=== PATIENT | female | born 1945 | race Caucasian/White ===

== ENCOUNTER 2024-05-08 13:15 | Outpatient (CLI) | payer MEDICARE, SELFPAY ==
--- OUTSIDE RECORDS SUMMARY | 2024-05-08 13:19 | XMS_ITS | Clinical Summary ---
Author Organization [facility] Address [place], [place] [address] Care Team Providers Care Brush Stainer Name Role Phone Ginny Watson MD Primary Care Provider Milo infante Social History Tobacco Use Types Packs/Day Years Used Date Smoking Tobacco: Never Assessed Sex and Gender Information Value Date Recorded Sex Assigned at Not on file Gender Identity Not on file Sexual Orientation Not on file Plan of Treatment Health Maintenance Due Date Last Done Comments Tdap 1957 Depression screening for age 12+ 1958 BMI (ht and wt on same day) for age 18+ 1964 Hepatitis C screening for age 18-79 1964 Tetanus booster 1966 Zoster (shingles) series for age 50+ (1 of 2) 03/16/19 96 Pneumococcal series for age 65+ (1 of 1 - PCV) 011 COVID-19 vaccine series ( - 2022-24 season) 3 Influenza for age 65+ 07/28/2024 DEXA/DXA scan for age 65+ Completed 03/07/2011 Procedures Procedure Name Priority Date/Time Associated Diagnosis Comments SCAN-BONE DENSITOMETRY DEXA 03/07/2011 12:00 AM CDT from Last 3 Months or Most Recently Relevant to Health Maintenance Results * SCAN-BONE DENSITOMETRY DEXA (03/07/2011 12:00 AM CDT) Anatomical Region Laterality Modality Other Narrative Procedure Note Scanner - 03/07/2011 12:00 AM CDT Scanner OTHER from Last 3 Months or Most Recently Relevant to Health Maintenance Care Teams Brush Stainer Relationship Specialty Start Date End Date Ginny Watson MD PCP - General Family Practice 07/27/12
== END 2024-05-08 13:16 | disposition home or self-care (01) ==
PROVIDERS: PCP Family Medicine; Visit Provider Family Medicine
DX: I10 Essential (primary) hypertension (principal); D64.9 Anemia, unspecified
CPT/HCPCS: 80053; 84443

== ENCOUNTER 2024-05-08 14:11 | Inpatient (IN) | payer MEDICARE, SELFPAY ==
[2024-05-08] VITALS (44 sets, daily range): BP systolic 162–206; BP diastolic 64–142; PULSE 77–102; RESP 16–20; TEMP 35.9–36.9; O2SAT 90–100; BMI 31.7; BMI 32.0
--- NOTE | 2024-05-08 14:40 | ED_ITS ---
HPI - General Adult General Date Seen: 05/08/24 Chief complaint: Shortness of Breath/Dyspnea Stated complaint: PCP sent over-Hemog low Time Seen by Provider: 05/08/24 14:28 History of Present Illness HPI narrative: 79-year-old female who was referred to the ER today from the clinic for evaluation of low hemoglobin. She has apparently been having troubles with fatigue ever since she had COVID shots 2 years ago. She does not normally go to the doctor. In clinic today she was checked and her hemoglobin was 5.5. No recent black or bloody stools. No pain. Per clinic note from today, Patient is a 79 year-old female , last seen at any of our locations 04/20/[address] Urena. I last saw her in 2018. She has a following concerns. 1. Reduced stamina, low energy, lightheadedness. Noticed for 3 years but more noticeable in the last 2 months. Some days she is able to walk 45 minutes and other days she struggles to walk even 200 ft without stopping to rest. No associated chest pain. She does endorse dyspnea on exertion. 2. Left ear popping. 3. Ear humming. Lab 05/08/2024 WBC 7.9, hemoglobin 5.5, hematocrit 21.5, platelet count 382 TSH-pending CMP-pending History from the patient is that she recalls getting a COVID shot about 2 years ago. After that she began having some gurgling in GI upset. She blames those symptoms on her COVID shot because she had never had any of those illnesses before. It sounds like her doctor has recommended previous colonoscopies and other testing but she has always declined. She says she is generally healthy. She takes calcium but no other routine medications. She has not seen her doctor in a couple of years. She has had some trouble with some fatigue for the past couple of years of her sensor COVID shot but notes that in particular for the past 2 or 3 months she has been much more fatigued. She normally would do a lot of work around her yard and garden but she has been so symptomatic she has been unable to do it for the past few months. She has a mailbox that is 200-300 ft away from her house. She notes that couple of months ago she would walk out to the mailbox. Very short of breath that her heart would be racing and she be breathing rapidly so she would after rest minute. She has gotten to the point now where she cannot even go out to her mailbox. When she tries to walk around how she gets so short of breath she has to sit down and rest. She is not really having chest pain. Just that she feels very fatigued and dizzy and short of breath with exertion. No palpitations. No swelling in her legs. No headaches. No fever. Bowel movements have been normal. She has a distant history of ulcerative proctitis but has not had any pain like that in many years. No black or bloody stools. She does take aspirin occasionally (since for instance as needed for headache) but probably no more than once every few weeks. No NSAIDs. No other anticoagulants. Related Data Home Medications ?Medication ?Instructions ?Recorded ?Confirmed calcium 650 mg-vitamin D3 12.5 1 tab PO BID 05/08/24 05/08/24 mcg-vitamin K 40 mcg chewable tablet (Viactiv) Allergies Allergy/AdvReac Type Severity Reaction Status Date / Time citric acid Allergy Intermediate Itching Verified 05/08/24 18:00 fish derived Allergy Intermediate Hives Verified 05/08/24 18:00 magnesium citrate Allergy Intermediate Itching Verified 05/08/24 18:00 and Rash shellfish derived Allergy Mild Rash Verified 05/08/24 18:00 CT contrast Allergy Mild voice Uncoded 05/08/24 18:00 [facility] Medical History (Updated 05/08/24 @ 18:52 by Robert Machado MD) Hypertension ?I10 - Essential (primary) hypertension (ICD-10) Microcytic anemia ?D50.9 - Iron deficiency anemia, unspecified (ICD-10) Surgical History (Updated 05/08/24 @ 15:27 by Ashly Burno) History of anterior colporrhaphy (08/08/17) ?Z98.890 - Other specified postprocedural states (ICD-10) History of total vaginal hysterectomy (12/22/04) ?Z90.710 - Acquired absence of both cervix and uterus (ICD-10) History of tonsillectomy and adenoidectomy ?Z90.89 - Acquired absence of other organs (ICD-10) History of dilation and curettage (10/13/04) ?Z98.890 - Other specified postprocedural states (ICD-10) Family History (Updated 05/08/24 @ 15:34 by Ashly Damion) Father Esophageal cancer Mother COPD (chronic obstructive pulmonary disease) Social History (Updated 05/08/24 @ 18:48 by Robert Machado MD) Narrative: She lives with her and son [facility]. Her son is healthcare power of privacy attorney. Code status is full. She does not smoke. She does not drink alcohol. What is your current living situation?: I presently have a place to live Problems where you live: no known problems Problems where you live details: N/A In the past 12 months, utilities in danger of being shut off: no In past 12 months, lack of transportation kept you from medical appts, meetings, work, or getting things needed for daily living: no In the past 12 mos, have been you worried that your food would run out before you had money to buy more?: never true In the past 12 mos, the food you bought just didn't last and you didn't have money to buy more?: never true Smoking Status: Never smoker Do you use any of these nicotine containing products: None Second hand tobacco smoke exposure: No How often do you have a drink containing alcohol: never AUDIT-C Alcohol total score: 0 Non-prescribed substance use: denies use How often does anyone, including family, friends and others, physically hurt you : never How often does anyone, including family, friends and others, insult or talk down to you: never How often does anyone, including family, friends and others, threaten you with harm: never How often does anyone, including family, friends and others, scream or curse at you: never Little interest or pleasure in doing things: not at all Feeling down, depressed, or hopeless: not at all service: No Exam Narrative: Exam Narrative: Constitutional: Appears well-developed and well-nourished. Alert. Conversant. Non toxic. HENT: Head: Atraumatic. Nose: Nose normal. Mouth/Throat: Oral mucosa is clear and moist. no trismus. Pharynx normal. Tonsils symmetric. No tonsillar enlargement, erythema, or exudate. Eyes: Conjunctivae normal. EOM normal. Pupils equal, round, and reactive to light. No scleral icterus. Neck: Normal range of motion. Neck supple. No tracheal deviation present. No JVD Cardiovascular: Normal rate, regular rhythm. No gallop. No friction rub. No murmur heard. Symmetric radial and PT artery pulses Pulmonary/Chest: Effort normal. No stridor. No respiratory distress. No wheezes. No rales. No rhonchi . No tenderness. Abdominal: Soft. Bowel sounds normal. No distension. No mass. Right lower quadrant right mid abdominal tenderness. No rebound. No guarding. Musculoskeletal: RUE: Normal range of motion. No tenderness. No deformity LUE: Normal range of motion. No tenderness. No deformity RLE: Normal range of motion. No edema. No tenderness. No deformity LLE: Normal range of motion. No edema. No tenderness. No deformity Lymph: No cervical adenopathy. Neurological: Alert and oriented to person, place, and time. Normal strength. CN II-VII intact. No sensory deficit. GCS eye subscore is 4. GCS verbal subscore is 5. GCS motor subscore is 6. Normal coordination Skin: Skin is pale, but warm and dry. No rash noted. No pallor. Normal capillary refill. Psychiatric: Normal mood. Normal affect. Const: Vital Signs, click to edit/add: Vital Signs - 24 hr 05/08/24 14:32 05/08/24 14:32 05/08/24 14:34 Temperature 96.6 F L Pulse Rate 85 77 Pulse Rate [Pulse Oximeter] 88 Respiratory Rate 20 Blood Pressure 206/81 H Blood Pressure [Ri ght Upper Arm] 206/81 H Pulse Oximetry 95 99 [facility] 05/08/24 14:40 05/08/24 14:41 05/08/24 14:45 Temperature Pulse Rate 82 91 80 Pulse Rate [Pulse Oximeter] Respiratory Rate 16 Blood Pressure 196/84 H Blood Pressure [Ri ght Upper Arm] Pulse Oximetry 100 100 98 Oxygen Delivery Ar thod 05/08/24 15:00 05/08/24 15:02 05/08/24 15:03 Temperature Pulse Rate 85 80 86 Pulse Rate [Pulse Oximeter] Respiratory Rate Blood Pressure 193/142 H Blood Pressure [Ri ght Upper Arm] Pulse Oximetry 99 95 98 Oxygen Delivery Ar thod 05/08/24 15:15 05/08/24 15:28 05/08/24 15:30 Temperature Pulse Rate 78 77 79 Pulse Rate [Pulse Oximeter] Respiratory Rate Blood Pressure 191/81 H Blood Pressure [Ri ght Upper Arm] Pulse Oximetry 93 98 98 Oxygen Delivery Me thod 05/08/24 16:00 05/08/24 16:02 05/08/24 16:15 Temperature Pulse Rate 85 85 102 H Pulse Rate [Pulse Oximeter] Respiratory Rate Blood Pressure 183/73 H Blood Pressure [Ri ght Upper Arm] Pulse Oximetry 98 96 99 Oxygen Delivery Me thod 05/08/24 16:23 05/08/24 16:30 05/08/24 16:33 Temperature Pulse Rate 88 90 85 Pulse Rate [Pulse Oximeter] Respiratory Rate Blood Pressure 197/74 H 203/82 H Blood Pressure [Ri ght Upper Arm] Pulse Oximetry 98 97 98 Oxygen Delivery Me thod 05/08/24 16:34 05/08/24 16:45 05/08/24 16:47 Temperature Pulse Rate 84 88 Pulse Rate [Pulse Oximeter] Respiratory Rate 20 Blood Pressure Blood Pressure [Ri ght Upper Arm] Pulse Oximetry 98 99 Oxygen Delivery Ar thod 05/08/24 16:48 05/08/24 17:00 05/08/24 17:02 Temperature Pulse Rate 80 93 88 Pulse Rate [Pulse Oximeter] Respiratory Rate Blood Pressure 197/82 H 199/76 H Blood Pressure [Ri ght Upper Arm] Pulse Oximetry 97 91 90 Oxygen Delivery Ar thod 05/08/24 17:11 05/08/24 17:15 05/08/24 17:16 Temperature 98.1 F Pulse Rate 83 82 81 Pulse Rate [Pulse Oximeter] Respiratory Rate 20 Blood Pressure 201/81 H 201/81 H Blood Pressure [Ri ght Upper Arm] Pulse Oximetry 97 96 96 Oxygen Delivery Me thod 05/08/24 17:30 05/08/24 17:35 05/08/24 17:36 Temperature 98.0 F Pulse Rate 83 80 80 Pulse Rate [Pulse Oximeter] Respiratory Rate 20 20 Blood Pressure 184/75 H 184/75 H Blood Pressure [Ri ght Upper Arm] Pulse Oximetry 97 97 95 Oxygen Delivery Me thod 05/08/24 17:37 05/08/24 17:45 05/08/24 18:00 Temperature Pulse Rate 80 81 82 Pulse Rate [Pulse Oximeter] Respiratory Rate Blood Pressure Blood Pressure [Ri ght Upper Arm] Pulse Oximetry 96 96 96 Oxygen Delivery Me thod 05/08/24 18:02 05/08/24 18:15 05/08/24 18:20 Temperature 97.8 F Pulse Rate 80 85 84 Pulse Rate [Pulse Oximeter] Respiratory Rate 20 Blood Pressure 192/84 H 206/93 H Blood Pressure [Ri ght Upper Arm] Pulse Oximetry 96 96 97 Oxygen Delivery Me thod 05/08/24 18:21 Temperature Pulse Rate 88 Pulse Rate [Pulse Oximeter] Respiratory Rate 20 Blood Pressure 206/93 H Blood Pressure [Ri ght Upper Arm] Pulse Oximetry 95 Oxygen Delivery Me thod Course Vital Signs Vital signs: Initial Vital Signs Temperature 96.6 F L 05/08/24 14:32 Temperature Source Temporal Artery Scan 05/08/24 14:32 Pulse Rate 85 05/08/24 14:32 Pulse Rhythm Regular 05/08/24 14:32 Pulse Strength 3+ Normal 05/08/24 14:32 Respiratory Rate 20 05/08/24 14:32 Blood Pressure 206/81 H 05/08/24 14:32 Blood Pressure Mean 122 H 05/08/24 14:32 Blood Pressure Position Sitting 05/08/24 14:32 Pulse Oximetry 95 05/08/24 14:32 Oxygen Delivery Method Room Air 05/08/24 14:32 Vital Signs Temperature 96.6 F L 05/08/24 14:32 Pulse Rate 85 05/08/24 14:32 Respiratory Rate 20 05/08/24 14:32 Blood Pressure 206/81 H 05/08/24 14:32 Pulse Oximetry 95 05/08/24 14:32 Oxygen Delivery Method Room Air 05/08/24 14:32 Temperature 97.8 F 05/08/24 19:38 Pulse Rate 82 05/08/24 19:38 Respiratory Rate 20 05/08/24 19:38 Blood Pressure 185/80 H 05/08/24 19:38 Pulse Oximetry 95 05/08/24 19:38 Oxygen Delivery Method Room Air 05/08/24 19:30 Medications Administered Medications: Discontinued Medications Generic Name Dose Route Start Last Admin Trade Name Freq PRN Reason Stop Dose Admin Diphenhydramine HCl 25 mg 05/08/24 16:49 05/08/24 16:30 Diphenhydramine 50 Mg/Ml Inj IVP 05/08/24 16:50 25 mg ONCE ONE Administration Famotidine 20 mg 05/08/24 16:49 05/08/24 17:24 Famotidine 10 Mg/Ml Inj IVP 05/08/24 16:50 Not Given ONCE ONE Methylprednisolone Sodium Succinate 125 mg 05/08/24 16:49 05/08/24 16:35 Methylprednisolone Sod Succ 62.5 Mg/Ml (125) IVP 05/08/24 16:50 125 mg ONCE ONE Administration Medical Decision Making [facility] Narrative Medical decision making narrative: 79-year-old female referred from the outpatient clinic today with anemia. She has had symptoms of anemia, possibly dating back to couple of years but it sounds pretty convincing that she has been having significant anemia for the past couple of months. She has not seen a doctor a few years but finally came back to the clinic today because her symptoms had not been improving over time. She was found to have a hemoglobin of 5.5. Suspect this is probably a chronic anemia because the patient is hemodynamically stable (actually, hypertensive). The she has clear symptoms attributable to anemia and with hemoglobin of 5.5 I do think transfusion is indicated. Discussed risks and benefits of transfusion with the patient her son. They give verbal and written consent for transfusion. She is started on her 1st of 2 units of packed red cells while here in the ER. Differential for causes of anemia is broad. There is no clear sign of hemolysis on her CBC. She will need workup for iron deficiency or other vitamin deficiencies causing poor synthetic function from her bone marrow. Also consider possible GI bleeding. She denies any recent black or bloody stools. She does have a distant history of ulcerative proctitis, but has not had any symptoms to that for years. CT scan today shows no sign of any acute inflammatory change in the abdomen or pelvis. Her stool is heme-positive. Consider possible subacute to chronic upper GI bleed or lower GI bleed. Patient will be admitted for observation overnight to watch her hemoglobin as she received her transfusion and can have further workup for possible upper GI bleed while in hospital. She will likely need endoscopy and possibly outpatient colonoscopy as well. Discussed with our hospitalist, Dr. Machado , who graciously agrees to admit. Incidentally while here in the ER the patient had a brief episode of hoarseness in her voice after receiving IV contrast. Treated with IV steroids and antihistamines with completely resolution. No other clear signs of allergy such as hives or any visible airway or facial swelling. Nonetheless, we will label her chart as a allergy to CT contrast. At this point she is not requiring any further treatment or epinephrine. Epinephrine room was somewhat contraindicated because of pre-existing hypertension however she does have any recurrent symptoms of allergic reaction, epinephrine would be indicated. Lab Data Labs: Lab Results 05/08/24 05/08/24 05/08/24 Range/Units 14:43 15:09 16:55 WBC 7.58 (4.50-11.00) K/uL RBC 3.98 L (4.00-5.20) m/uL Hgb 5.5 L* (12.0-16.0) gm/dL Hct 21.6 L (33.0-51.0) % MCV 54 L (80-100) fL MCH 14 L (26-34) pg MCHC 26 L (32-36) gm/dL RDW Coeff of Halley 22.0 H (11.5-15.5) % Plt Count 383 (140-440) K/uL Neut % (Auto) 61.3 (42.0-72.0) % Lymph % (Auto) 25.2 (20-44) % [place] % (Auto) 10.8 (0.0-11.0) % Eos % (Auto) 1.5 (0.0-7.0) % Baso % (Auto) 1.1 (0.0-3.0) % Neut # (Auto) 4.65 (1.7-7.0) K/uL Lymph # (Auto) 1.91 (0.90-2.90) K/uL [place] # (Auto) 0.80 (0.00-0.90) K/UL Eos # (Auto) 0.11 (0.00-0.50) K/uL Baso # (Auto) 0.08 (0.00-0.30) K/uL Abs Immat Gran (auto) 0.01 (0.00-0.30) K/uL Imm/Tot Granulo (auto) 0.1 % Diff Slide Review Acceptable Review (Acceptable) Stool Occult Blood Positive A (Negative) POC Troponin I 0.01 (0.01-0.04) ng/ml Blood Type AB Positive Antibody Screen NEGATIVE Crossmatch (AHG) See Detail Imaging Data CT scan - abdomen: Attestation: I have reviewed the pertinent imaging results. My impression: IMPRESSION: No acute intraabdominal process identified. ECG Data Attestation: I personally reviewed and interpreted this ECG as follows: Interpretation: Normal sinus rhythm Rate: 74 DE: 158 QRS axis: Normal axis. No pathologic Q-waves. ST segment/T wave: No ST segment elevation or depression. QTc: 417 Discharge Plan Discharge Clinical Impression: Anemia, Heme positive stool
[2024-05-08 14:56] LABS: Basophils Absolute Auto 0.08 K/uL (0.00-0.30); Basophils Percent Auto 1.1 % (0.0-3.0); Eosinophils Absolute Auto 0.11 K/uL (0.00-0.50); Eosinophils Percent Auto 1.5 % (0.0-7.0); Hematocrit* 21.6 % (33.0-51.0); Immature Granulocytes Abs Auto 0.01 K/uL (0.00-0.30); Immature Granulocytes Pct Auto 0.1 %; Lymphocytes Absolute Auto 1.91 K/uL (0.90-2.90); Lymphocytes Percent Auto 25.2 % (20-44); Mean Corpuscular HGB Conc 26 gm/dL (32-36); Mean Corpuscular Hemoglobin 14 pg (26-34); Mean Corpuscular Volume 54 fL (80-100); Monocytes Percent Auto 10.8 % (0.0-11.0); Neutrophils Absolute Auto 4.65 K/uL (1.7-7.0); Neutrophils Percent Auto 61.3 % (42.0-72.0); Platelet Count* 383 K/uL (140-440); Red Blood Count* 3.98 m/uL (4.00-5.20); White Blood Count* 7.58 K/uL (4.50-11.00)
[2024-05-08 15:03] LABS: Hemoglobin* 5.5 gm/dL (12.0-16.0); Slide Review Reflex Yes
--- NOTE | 2024-05-08 15:03 | ED.NURSE ---
Critical hgb of 5.5, aware
--- NOTE | 2024-05-08 15:06 | CRLHL7_ITS ---
For Patients: As a result of the Century Cures Act, medical imaging exams and procedure reports are released immediately into your electronic medical record. You may view this report before your referring provider. If you have questions, please contact your health care provider. INDICATION: anemia, weakness, RLQ tenderness. TECHNIQUE: CT abdomen and pelvis acquired with 82 cc Isovue 370 IV contrast. COMPARISON: None. FINDINGS: Lower chest: Mild cardiomegaly. Liver: Unremarkable. Normal in size and attenuation. No suspicious masses. Gallbladder and bile ducts: Unremarkable. No stones or inflammation. No biliary dilatation. Pancreas: Unremarkable. No mass or inflammation. Spleen: Unremarkable. Normal in size. No masses. Adrenal glands: Unremarkable. No nodules. Kidneys: Unremarkable. No suspicious masses, stones, or hydronephrosis. GI tract: Small hiatal hernia. Severe sigmoid diverticulosis. Normal appendix. Vasculature: Abdominal aorta is normal in caliber. Mesenteric arteries are patent. Lymph nodes: No lymphadenopathy. Peritoneum/Abdominal Wall: Unremarkable. No sign of mass or infiltration. No free air or significant free fluid. Pelvis: Unremarkable. Bones: Unremarkable for age. IMPRESSION: No acute intraabdominal process identified. Please note that all CT scans at this facility use dose modulation, iterative reconstruction, and/or weight-based dosing when appropriate to reduce radiation dose to as low as reasonably achievable. Dictated by Belgica Wooten MD @ 05/08/2024 6:33:00 PM (Electronically Signed)
[2024-05-08 15:10] LABS: Troponin, Point-of-Care* 0.01 ng/ml (0.01-0.04)
--- OUTSIDE RECORDS SUMMARY | 2024-05-08 15:23 | XMS_ITS | Clinical Summary ---
Author Organization [facility] Address [place], [place] [address] Care Team Providers Care Hand Nailer Name Role Phone Ginny Watson MD Primary [...] Recently Relevant to Health Maintenance Care Teams Hand Nailer Relationship Specialty Start Date End Date Ginny Watson MD PCP - General Family Practice 07/27/12
[2024-05-08 16:16] LABS: Slide Review Acceptable Review (Acceptable)
[2024-05-08] MEDS: diphenhydrAMINE 50 MG/ML inj 25 MG IVP (16:30)
[2024-05-08] MEDS: METHYLPREDNISOLONE SOD SUCC 62.5 MG/ML (125) 125 MG IVP (16:35)
[2024-05-08 17:56] LABS: Fecal Occult Blood* Positive (Negative)
--- NOTE | 2024-05-08 18:41 | PM.IMHP1 ---
Hospitalist- H&P: HPI History of Present Illness Date Seen: 05/08/24 Chief complaint: PCP sent over-Hemog low Narrative: Kiersten Brown is a 79 year old female admitted to the hospital with several weeks or months of worsening fatigue and lightheadedness and hemoglobin in clinic today of 5.5. She reports poor exercise tolerance and reports feeling like she has 'run a marathon' with even mild routine household tasks. She has not been syncopal. She does not have chest pain with activity. She had heme-positive stool in the emergency department Patient reports she has generally been healthy but has noted worsening fatigue and lightheadedness especially over the last few weeks. She indicates this may have gone back a couple years to when she got the COVID vaccine as well. At that time she did have gastrointestinal symptoms and some wheezing for a few months and that resolved and she seemed to get better but now is getting worse again. She is not aware of any bleeding. She reports her stools are normally light brown but today in the emergency department she had a dark stool. She has not seen blood in her stool. She has no vomiting or abdominal pain. She has not any fever. 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 This diagnosis was made in the . She has not been taking any treatment for this. She had a colonoscopy done 03/17/[address] Samayoa. He found colitis in the area of the colon 10-15 cm above the rectal verge. A biopsy of that area showed focally minimally active chronic colitis. She is not taking any anticoagulation. She occasionally but quite infrequently takes an aspirin. Her only medication is a multivitamin. She does not take [id number] pain medicines including NSAIDs/ibuprofen/naproxen. Review of Systems Narrative: She tells me that she has had high blood pressure diagnosis in the past but is reluctant to take blood pressure medication. [facility] Medical History (Updated 05/08/24 @ 18:52 by Robert Machado MD) Hypertension ?I10 - Essential (primary) hypertension (ICD-10) Microcytic anemia ?D50.9 - Iron deficiency anemia, unspecified (ICD-10) Surgical History (Updated 05/08/24 @ 15:27 by Ashly Bruno) History of anterior colporrhaphy (08/08/17) ?Z98.890 - Other specified postprocedural states (ICD-10) History of total vaginal hysterectomy (12/22/04) ?Z90.710 - Acquired absence of both cervix and uterus (ICD-10) History of tonsillectomy and adenoidectomy ?Z90.89 - Acquired absence of other organs (ICD-10) History of dilation and curettage (10/13/04) ?Z98.890 - Other specified postprocedural states (ICD-10) Family History (Updated 05/08/24 @ 15:34 by Ashly Bruno) Father Esophageal cancer Mother COPD (chronic obstructive pulmonary disease) Social History (Updated 05/08/24 @ 18:48 by Robert Machado MD) Narrative: She lives with her and son [facility]. Her son is healthcare power of title attorney. Code status is full. She does not smoke. She does not drink alcohol. What is your current living situation?: I presently have a place to live Problems where you live: no known problems In the past 12 months, utilities in danger of being shut off: no In past 12 months, lack of transportation kept you from medical appts, meetings, work, or getting things needed for daily living: no In the past 12 mos, have been you worried that your food would run out before you had money to buy more?: never true In the past 12 mos, the food you bought just didn't last and you didn't have money to buy more?: never true Smoking Status: Never smoker Do you use any of these nicotine containing products: None Second hand tobacco smoke exposure: No How often do you have a drink containing alcohol: never AUDIT-C Alcohol total score: 0 Non-prescribed substance use: denies use How often does anyone, including family, friends and others, physically hurt you: never How often does anyone, including family, friends and others, insult or talk down to you: rarely How often does anyone, including family, friends and others, threaten you with harm: never How often does anyone, including family, friends and others, scream or curse at you: never Little interest or pleasure in doing things: not at all Feeling down, depressed, or hopeless: not at all service: No Meds Home Medications and Allergies Home Medications ?Medication ?Instructions ?Recorded ?Confirmed ?Type calcium 650 mg-vitamin D3 12.5 1 tab PO BID 05/08/24 05/08/24 History mcg-vitamin K 40 mcg chewable tablet (Viactiv) Allergies Allergy/AdvReac Type Severity Reaction Status Date / Time citric acid Allergy Intermediate Itching Verified 05/08/24 18:00 fish derived Allergy Intermediate Hives Verified 05/08/24 18:00 magnesium citrate Allergy Intermediate Itching Verified 05/08/24 18:00 and Rash shellfish derived Allergy Mild Rash Verified 05/08/24 18:00 CT contrast Allergy Mild voice Uncoded 05/08/24 18:00 Exam Narrative: Exam Narrative: She is alert and appears in no distress. She gives her own history. Speech is normal. Oropharynx is normal. Neck is supple without mass or adenopathy. Respirations are clear to auscultation. Cardiovascular: S1, S2, regular rate and rhythm. No murmur gallop or rub. Abdomen: Bowel sounds active. Abdomen is soft without tenderness or mass. Extremities without edema. Good peripheral pulses Const: Vital Signs, click to edit/add: Vital Signs - 24 hr 05/08/24 14:32 05/08/24 14:32 05/08/24 14:34 Temperature 96.6 F L Pulse Rate 85 77 Pulse Rate [Pulse Oximeter] 88 Respiratory Rate 20 Blood Pressure 206/81 H Blood Pressure [Ri ght Upper Arm] 206/81 H Pulse Oximetry 95 99 100 Oxygen Delivery Me thod Room Air 05/08/24 14:40 05/08/24 14:41 05/08/24 14:45 Temperature Pulse Rate 82 91 80 Pulse Rate [Pulse Oximeter] Respiratory Rate 16 Blood Pressure 196/84 H Blood Pressure [Ri ght Upper Arm] Pulse Oximetry 100 100 98 Oxygen Delivery Me thod 05/08/24 15:00 05/08/24 15:02 05/08/24 15:03 Temperature Pulse Rate 85 80 86 Pulse Rate [Pulse Oximeter] Respiratory Rate Blood Pressure 193/142 H Blood Pressure [Ri ght Upper Arm] Pulse Oximetry 99 95 98 Oxygen Delivery Me thod 05/08/24 15:15 05/08/24 15:28 05/08/24 15:30 Temperature Pulse Rate 78 77 79 Pulse Rate [Pulse Oximeter] Respiratory Rate Blood Pressure 191/81 H Blood Pressure [Ri ght Upper Arm] Pulse Oximetry 93 98 98 Oxygen Delivery Sc thod 05/08/24 16:00 05/08/24 16:02 05/08/24 16:15 Temperature Pulse Rate 85 85 102 H Pulse Rate [Pulse Oximeter] Respiratory Rate Blood Pressure 183/73 H Blood Pressure [Ri ght Upper Arm] Pulse Oximetry 98 96 99 Oxygen Delivery Me thod 05/08/24 16:23 05/08/24 16:30 05/08/24 16:33 Temperature Pulse Rate 88 90 85 Pulse Rate [Pulse Oximeter] Respiratory Rate Blood Pressure 197/74 H 203/82 H Blood Pressure [Ri ght Upper Arm] Pulse Oximetry 98 97 98 Oxygen Delivery Me thod 05/08/24 16:34 05/08/24 16:45 05/08/24 16:47 Temperature Pulse Rate 84 88 Pulse Rate [Pulse Oximeter] Respiratory Rate 20 Blood Pressure Blood Pressure [Ri ght Upper Arm] Pulse Oximetry 98 99 Oxygen Delivery Me thod 05/08/24 16:48 05/08/24 17:00 05/08/24 17:02 Temperature Pulse Rate 80 93 88 Pulse Rate [Pulse Oximeter] Respiratory Rate Blood Pressure 197/82 H 199/76 H Blood Pressure [Ri ght Upper Arm] Pulse Oximetry 97 91 90 Oxygen Delivery Me thod 05/08/24 17:11 05/08/24 17:15 05/08/24 17:16 Temperature 98.1 F Pulse Rate 83 82 81 Pulse Rate [Pulse Oximeter] Respiratory Rate 20 Blood Pressure 201/81 H 201/81 H Blood Pressure [Ri ght Upper Arm] Pulse Oximetry 97 96 96 Oxygen Delivery Me thod 05/08/24 17:30 05/08/24 17:35 05/08/24 17:36 Temperature 98.0 F Pulse Rate 83 80 80 Pulse Rate [Pulse Oximeter] Respiratory Rate 20 20 Blood Pressure 184/75 H 184/75 H Blood Pressure [Ri ght Upper Arm] Pulse Oximetry 97 97 95 Oxygen Delivery Me thod 05/08/24 17:37 05/08/24 17:45 05/08/24 18:00 Temperature Pulse Rate 80 81 82 Pulse Rate [Pulse Oximeter] Respiratory Rate Blood Pressure Blood Pressure [Ri ght Upper Arm] Pulse Oximetry 96 96 96 Oxygen Delivery Me thod 05/08/24 18:02 05/08/24 18:15 05/08/24 18:20 Temperature 97.8 F Pulse Rate 80 85 84 Pulse Rate [Pulse Oximeter] Respiratory Rate 20 Blood Pressure 192/84 H 206/93 H Blood Pressure [Ri ght Upper Arm] Pulse Oximetry 96 96 97 Oxygen Delivery Me thod 05/08/24 18:21 Temperature Pulse Rate 88 Pulse Rate [Pulse Oximeter] Respiratory Rate 20 Blood Pressure 206/93 H Blood Pressure [Ri ght Upper Arm] Pulse Oximetry 95 Oxygen Delivery Me thod Documenting provider has reviewed patient's vital signs: yes Hospitalist - H&P: Result Labs Labs: Short CBC 05/08/24 Range/Units 14:43 WBC 7.58 (4.50-11.00) K/uL Hgb 5.5 L* (12.0-16.0) gm/dL Hct 21.6 L (33.0-51.0) % Plt Count 383 (140-440) K/uL Assessment and Plan Assessment and plan (1) Microcytic anemia: Problem comment: Likely chronic iron deficiency anemia. Suspect due to chronic blood loss from the gastrointestinal tract. Obtain EGD now and outpatient colonoscopy. Check retic count and iron studies. Outpatient iron therapy if indicated. Transfuse 2 units of blood now and recheck hemoglobin. Status: Acute (2) Heme positive stool: Problem comment: Obtain EGD now and colonoscopy as an outpatient. Status: Acute (3) Hypertension: Problem comment: Longstanding and untreated. Patient is considering whether she is willing to take blood pressure medications chronically. Start antihypertensives when clinically appropriate and patient willing to continue treatment Status: Acute (4) Ulcerative proctitis: Problem comment: Remote history. Unclear if this is contributing to current problems. Recommend repeat colonoscopy Status: Acute (5) Fatigue: Problem comment: 05/08/24 Hgb=5.5. Fatigue is likely due to anemia. Likely to improve with transfusion and iron therapy Status: Acute Plan Patient is admitted to the hospital for evaluation and treatment of severe anemia with a hemoglobin of 5.5. Initiate blood transfusion and PPI and EGD. Colonoscopy as an outpatient unless evidence of ongoing bleeding and then consider inpatient colonoscopy if clinically appropriate Total Time Spent Total Time Spent: Total time spent today is 60 minutes, 40 minutes in coordination of care and discussing with patient family and other providers ongoing evaluation management of anemia
[2024-05-08] MEDS: OMEPRAZOLE 20 MG CAPSULE DR PO (21:10)
[2024-05-08] MEDS: PANTOPRAZOLE SODIUM 40 MG INJ 80 MG IVP (21:10)
[2024-05-08] MEDS: SODIUM CHLORIDE 0.9 % (FLUSH) 10 ML SYRINGE 5 ML IVF (21:14)
[2024-05-08] MEDS: VALSARTAN 80 MG TABLET 40 MG PO (21:45)
[2024-05-08 22:44] LABS: Immature Reticulocyte Fraction 56.1 % (3.0-15.9); Reticulocyte Hemoglobin Equivi 13.3 pg (29.0-35.0); Reticulocyte Percent 0.5 % (0.5-2.0); Reticulocytes Absolute 0.02 # (0.03-0.08)
[2024-05-08] MEDS: LACTATED RINGERS 1000 ML 1,000 ML 75 ML IV (22:56)
[2024-05-09] VITALS (12 sets, daily range): BP systolic 149–179; BP diastolic 65–92; PULSE 63–86; RESP 16–18; TEMP 36.2–37.2; O2SAT 93–98
[2024-05-09 02:51] LABS: Iron* 211 ug/dL (37-170)
[2024-05-09 03:01] LABS: Percent Iron Saturation 43 % (20-50); Total Iron Binding Capacity 487 ug/dL (265-497)
[2024-05-09 06:42] LABS: Basophils Absolute Auto 0.01 K/uL (0.00-0.30); Basophils Percent Auto 0.1 % (0.0-3.0); Immature Granulocytes Abs Auto 0.12 K/uL (0.00-0.30); Immature Granulocytes Pct Auto 1.3 %; Lymphocytes Percent Auto 9.3 % (20-44); Mean Corpuscular HGB Conc 29 gm/dL (32-36); Mean Corpuscular Hemoglobin 17 pg (26-34); Mean Corpuscular Volume 58 fL (80-100); Monocytes Percent Auto 4.1 % (0.0-11.0); Neutrophils Percent Auto 85.2 % (42.0-72.0); Platelet Count* 305 K/uL (140-440); RDW Coefficient of Variation % 26.5 % (11.5-15.5); Red Blood Count* 4.46 m/uL (4.00-5.20); White Blood Count* 9.27 K/uL (4.50-11.00)
[2024-05-09] MEDS: OMEPRAZOLE 20 MG CAPSULE DR PO (06:43)
[2024-05-09 06:59] LABS: Hemoglobin* 7.5 gm/dL (12.0-16.0)
[2024-05-09 07:00] LABS: Slide Review Reflex Yes
[2024-05-09 07:30] LABS: Slide Review Acceptable Review (Acceptable)
[2024-05-09] MEDS: PANTOPRAZOLE SODIUM 40 MG INJ IVP ×2 (08:30→19:58)
[2024-05-09] MEDS: SODIUM CHLORIDE 0.9 % (FLUSH) 10 ML SYRINGE 5 ML IVF ×2 (09:14→19:58)
--- NOTE | 2024-05-09 09:14 | PM.IMPN1 ---
Progress Note: A&P Assessment and plan (1) GI bleed: Problem details: Hgb 5.5->8-7.5 2 units transfused 05/08 1 unit transfused 05/09 Keep npo IVF/PPI EGD today add tele serial hgb Status: Acute (2) Heme positive stool: Problem details: Obtain EGD now and colonoscopy as an outpatient. Status: Acute (3) Microcytic anemia: Problem details: Likely chronic iron deficiency anemia. Suspect due to chronic blood loss from the gastrointestinal tract. Obtain EGD now and outpatient colonoscopy. Check retic count and iron studies. Outpatient iron therapy if indicated. Status: Acute (4) Hypertension: Problem details: Longstanding and untreated. Patient is considering whether she is willing to take blood pressure medications chronically. Start antihypertensives when clinically appropriate and patient willing to continue treatment Status: Acute (5) Ulcerative proctitis: Problem details: Remote history. Unclear if this is contributing to current problems. Recommend repeat colonoscopy Status: Acute Plan 05/09: EGD today; anticipated LOS 2 days, therapy evaluation later today Subjective Date Seen: 05/09/24 Interval history: patient was transfused 2 units yesterday Hgb trending down from 8->7.5 endorses fatigue, lethargy; additional 1 unit PRBC ordered this am denies abdominal pain no BM this morning scheduled for EGD this AM Exam Narrative: Exam Narrative: Gen: no acute distress HEENT: NCAT EOMI mmm CV: RRR normal s1 s2 Lungs: CTAB Abd: Soft,nt, nd Neuro: Alert, oriented, CN grossly intact; nonfocal screening?exam Psych: appropriate affect MSK: age appropriate muscle mass Skin; Warm, dry no rash on face Const: Vital Signs, click to edit/add: Vital Signs - 24 hr 05/08/24 14:32 05/08/24 14:32 05/08/24 14:34 Temperature 96.6 F L Pulse Rate 85 77 Pulse Rate [Apical ] Pulse Rate [Pulse Oximeter] 88 Respiratory Rate 20 Blood Pressure 206/81 H Blood Pressure [Ri ght Arm] Blood Pressure [Ri ght Upper Arm] 206/81 H Pulse Oximetry 95 99 100 Oxygen Delivery Me thod Room Air 05/08/24 14:40 05/08/24 14:41 05/08/24 14:45 Temperature Pulse Rate 82 91 80 Pulse Rate [Apical ] Pulse Rate [Pulse Oximeter] Respiratory Rate 16 Blood Pressure 196/84 H Blood Pressure [Ri ght Arm] Blood Pressure [Ri ght Upper Arm] Pulse Oximetry 100 100 [facility] 05[facility] 15:00 05/08/24 15:02 05/08/24 15:03 Temperature Pulse Rate 85 80 86 Pulse Rate [Apical ] Pulse Rate [Pulse Oximeter] Respiratory Rate Blood Pressure 193/142 H Blood Pressure [Ri ght Arm] Blood Pressure [Ri ght Upper Arm] Pulse Oximetry 99 95 98 [facility] 05/08/24 15:15 05/08/24 15:28 05/08/24 15:30 Temperature Pulse Rate 78 77 79 Pulse Rate [Apical ] Pulse Rate [Pulse Oximeter] Respiratory Rate Blood Pressure 191/81 H Blood Pressure [Ri ght Arm] Blood Pressure [Ri ght Upper Arm] Pulse Oximetry 93 98 98 [facility] 05/08/24 16:00 05/08/24 16:02 05/08/24 16:15 Temperature Pulse Rate 85 85 102 H Pulse Rate [Apical ] Pulse Rate [Pulse Oximeter] Respiratory Rate Blood Pressure 183/73 H Blood Pressure [Ri ght Arm] Blood Pressure [Ri ght Upper Arm] Pulse Oximetry 98 96 99 [facility] 05/08/24 16:23 05/08/24 16:30 05/08/24 16:33 Temperature Pulse Rate 88 90 85 Pulse Rate [Apical ] Pulse Rate [Pulse Oximeter] Respiratory Rate Blood Pressure 197/74 H 203/82 H Blood Pressure [Ri ght Arm] Blood Pressure [Ri ght Upper Arm] Pulse Oximetry 98 97 98 [facility] 05/08/24 16:34 05/08/24 16:45 05/08/24 16:47 Temperature Pulse Rate 84 88 Pulse Rate [Apical ] Pulse Rate [Pulse Oximeter] Respiratory Rate 20 Blood Pressure Blood Pressure [Ri ght Arm] Blood Pressure [Ri ght Upper Arm] Pulse Oximetry 98 99 [facility] 05/08/24 16:48 05/08/24 17:00 05/08/24 17:02 Temperature Pulse Rate 80 93 88 Pulse Rate [Apical ] Pulse Rate [Pulse Oximeter] Respiratory Rate Blood Pressure 197/82 H 199/76 H Blood Pressure [Ri ght Arm] Blood Pressure [Ri ght Upper Arm] Pulse Oximetry 97 91 90 Oxygen Delivery Me thod 05/08/24 17:11 05/08/24 17:15 05/08/24 17:16 Temperature 98.1 F Pulse Rate 83 82 81 Pulse Rate [Apical ] Pulse Rate [Pulse Oximeter] Respiratory Rate 20 Blood Pressure 201/81 H 201/81 H Blood Pressure [Ri ght Arm] Blood Pressure [Ri ght Upper Arm] Pulse Oximetry 97 96 96 Oxygen Delivery Me thod 05/08/24 17:30 05/08/24 17:35 05/08/24 17:36 Temperature 98.0 F Pulse Rate 83 80 80 Pulse Rate [Apical ] Pulse Rate [Pulse Oximeter] Respiratory Rate 20 20 Blood Pressure 184/75 H 184/75 H Blood Pressure [Ri ght Arm] Blood Pressure [Ri ght Upper Arm] Pulse Oximetry 97 97 95 Oxygen Delivery Me thod 05/08/24 17:37 05/08/24 17:45 05/08/24 18:00 Temperature Pulse Rate 80 81 82 Pulse Rate [Apical ] Pulse Rate [Pulse Oximeter] Respiratory Rate Blood Pressure Blood Pressure [Ri ght Arm] Blood Pressure [Ri ght Upper Arm] Pulse Oximetry 96 96 96 Oxygen Delivery Me thod 05/08/24 18:02 05/08/24 18:15 05/08/24 18:20 Temperature 97.8 F Pulse Rate 80 85 84 Pulse Rate [Apical ] Pulse Rate [Pulse Oximeter] Respiratory Rate 20 Blood Pressure 192/84 H 206/93 H Blood Pressure [Ri ght Arm] Blood Pressure [Ri ght Upper Arm] Pulse Oximetry 96 96 97 Oxygen Delivery Me thod 05/08/24 18:21 05/08/24 19:00 05/08/24 19:30 Temperature 98.4 F 97.8 F Pulse Rate 88 Pulse Rate [Apical ] 79 82 Pulse Rate [Pulse Oximeter] Respiratory Rate 20 18 18 Blood Pressure 206/93 H Blood Pressure [Ri ght Arm] 174/64 H 205/86 H Blood Pressure [Ri ght Upper Arm] Pulse Oximetry 95 95 97 Oxygen Delivery Me thod Room Air Room Air 05/08/24 19:30 05/08/24 19:38 05/08/24 20:03 Temperature 97.8 F 97.4 F L Pulse Rate 82 79 Pulse Rate [Apical ] Pulse Rate [Pulse Oximeter] Respiratory Rate 20 18 Blood Pressure 185/80 H 174/64 H Blood Pressure [Ri ght Arm] Blood Pressure [Ri ght Upper Arm] Pulse Oximetry 95 95 95 Oxygen Delivery Me thod Room Air 05/08/24 20:18 05/08/24 21:18 05/08/24 21:40 Temperature 98.1 F 98.3 F 98.3 F Pulse Rate 86 79 83 Pulse Rate [Apical ] Pulse Rate [Pulse Oximeter] Respiratory Rate 20 18 18 Blood Pressure 185/79 H 188/81 H 203/90 H Blood Pressure [Ri ght Arm] Blood Pressure [Ri ght Upper Arm] Pulse Oximetry 96 94 95 Oxygen Delivery Me thod 05/08/24 23:00 05/08/24 23:00 05/09/24 02:22 Temperature 98.1 F 97.9 F Pulse Rate Pulse Rate [Apical ] 81 81 76 Pulse Rate [Pulse Oximeter] Respiratory Rate 20 20 18 Blood Pressure Blood Pressure [Ri ght Arm] 162/80 H 161/65 H Blood Pressure [Ri ght Upper Arm] Pulse Oximetry 95 93 Oxygen Delivery Me thod Room Air Room Air 05/09/24 08:04 05/09/24 09:03 Temperature 97.1 F L Pulse Rate 86 80 Pulse Rate [Apical ] Pulse Rate [Pulse Oximeter] Respiratory Rate 18 Blood Pressure 169/66 H Blood Pressure [Ri ght Arm] Blood Pressure [Ri ght Upper Arm] Pulse Oximetry 94 Oxygen Delivery Me thod Labs Labs: Laboratory Results - last 24 hr 05/08/24 05/08/24 05/08/24 14:43 15:09 16:55 WBC 7.58 RBC 3.98 L Hgb 5.5 L* Hct 21.6 L MCV 54 L MCH 14 L MCHC 26 L RDW Coeff of Halley 22.0 H Plt Count 383 Neut % (Auto) 61.3 Lymph % (Auto) 25.2 [place] % (Auto) 10.8 Eos % (Auto) 1.5 Baso % (Auto) 1.1 Neut # (Auto) 4.65 Lymph # (Auto) 1.91 [place] # (Auto) 0.80 Eos # (Auto) 0.11 Baso # (Auto) 0.08 Abs Immat Gran (auto) 0.01 Imm/Tot Granulo (auto) 0.1 Diff Slide Review Acceptable Review Absolute Retic Percent Retic Immature Retic Fraction Retic Hgb Equivalent Iron TIBC % Saturation Stool Occult Blood Positive A POC Troponin I 0.01 Blood Type AB Positive Antibody Screen NEGATIVE Crossmatch ([facility]) See Detail 05/08/24 05/08/24 05/09/24 22:00 22:25 06:10 WBC 9.27 RBC 4.46 Hgb 8.0 L 7.5 L* Hct 26.0 L MCV 58 L MCH 17 L MCHC 29 L RDW Coeff of [place]ley 26.5 H Plt Count 305 Neut % (Auto) 85.2 H Lymph % (Auto) 9.3 L [place] % (Auto) 4.1 Eos % (Auto) 0.0 Baso % (Auto) 0.1 Neut # (Auto) 7.90 H Lymph # (Auto) 0.90 [place] # (Auto) 0.40 Eos # (Auto) 0.00 Baso # (Auto) 0.01 Abs Immat Gran (auto) 0.12 Imm/Tot Granulo (auto) 1.3 Diff Slide Review Acceptable Review Absolute Retic 0.02 L Percent Retic 0.5 Immature Retic Fraction 56.1 H Retic Hgb Equivalent 13.3 L Iron 211 H TIBC 487 % Saturation 43 Stool Occult Blood POC Troponin I Blood Type Antibody Screen Crossmatch ([facility])
--- NOTE | 2024-05-09 10:06 | W.ANESCHARGE ---
Anesthesia Charges Start Date/Time Anesthesia Start Date: 05/09/24 Anesthesia Start Time: 09:49 Stop Date/Time Anesthesia Stop Date: 05/09/24 Anesthesia Stop Time: 10:05 Summary Emergency: [employer]
[2024-05-09] MEDS: LACTATED RINGERS 1000 ML 1,000 ML 75 ML IV (11:21)
--- NOTE | 2024-05-09 11:27 | PC.NURSE ---
Patient a/o x4, SBA, RA. Patient received 1 unit of PRBC, tolerated well and no transfusion reaction noted. Patient completed Endoscopy this AM, biopsy done, and Hiatal Hernia found. Patients IV in R AC, 20G LR running @ 75mls/hr. IV in L AC SL. Patient no longer unit patient.
[2024-05-09 14:13] LABS: Hemoglobin* 8.9 gm/dL (12.0-16.0)
[2024-05-09 14:27] LABS: Chloride* 110 mmol/L (96-114); Potassium* 4.1 mmol/L (3.6-5.1); Sodium* 139 mmol/L (135-149)
[2024-05-09 14:30] LABS: Anion Gap 6 mEq/L (7-15); Blood Urea Nitrogen* 13 mg/dL (7-30); Calcium* 9.1 mg/dL (8.4-10.6); Carbon Dioxide* 23 mmol/L (20-32); Creatinine* 0.7 mg/dL (0.5-1.5); Est. Creatinine Clearance* 34.99; Estimated Glomerular Filt Rate 88 ml/min; Glucose* 112 mg/dL (60-115)
--- NOTE | 2024-05-09 18:30 | PC.NURSE ---
End of shift: Assumed care of patient at 1200. She is A&O and afebrile. VSS with exception to hypertensive SBP in the 170s. ordered PRN Hydralazine q6H for SBP > 180. Pt has no c/o pain, nausea or lightheadedness. She is SBA for transfers and ambulation. Hgb was 7.5 this AM and improved to 8.9 after transfusion of 1 unit of PRBC?s. PIV in left AC C/D/I and SL. PIV in right AC is C/D/I and infusing LR @ 75 mL/hr. Pt was NPO this morning but her diet was advanced as tolerated. She?s tolerated regular diet without issue. TELE reads NSR rate in the 60s-70s. ?
[2024-05-09 22:43] LABS: Ferritin* 14.4 ng/mL (11.1-264.0)
[2024-05-10] MEDS: LACTATED RINGERS 1000 ML 1,000 ML 75 ML IV (00:40)
[2024-05-10 03:00] VITALS: BP 174/81; PULSE 73; RESP 16; TEMP 36.5; O2SAT 91
--- NOTE | 2024-05-10 05:06 | PC.NURSE ---
[id number] Pt ambulating with SBA, tolerating activity well, denies feeling light headed or dizzy with ambulation, she ambulated the halls during the night once and tolerated activity very well. slept well during the night between cares. 1 BM this shift, light brown and formed.
[2024-05-10 07:02] LABS: Basophils Percent Auto 0.7 % (0.0-3.0); Eosinophils Percent Auto 1.2 % (0.0-7.0); Hematocrit* 28.4 % (33.0-51.0); Hemoglobin* 8.3 gm/dL (12.0-16.0); Immature Granulocytes Pct Auto 0.3 %; Lymphocytes Percent Auto 17.3 % (20-44); Mean Corpuscular HGB Conc 29 gm/dL (32-36); Mean Corpuscular Hemoglobin 18 pg (26-34); Mean Corpuscular Volume 61 fL (80-100); Monocytes Percent Auto 10.1 % (0.0-11.0); Neutrophils Percent Auto 70.4 % (42.0-72.0); Platelet Count* 254 K/uL (140-440); RDW Coefficient of Variation % 29.3 % (11.5-15.5); Red Blood Count* 4.63 m/uL (4.00-5.20); White Blood Count* 11.97 K/uL (4.50-11.00)
[2024-05-10 07:11] LABS: Slide Review Reflex No
[2024-05-10 07:30] VITALS: PULSE 89; PULSE 95; RESP 18
[2024-05-10 07:41] VITALS: BP 146/63; PULSE 95; RESP 18; TEMP 36.3; O2SAT 94
[2024-05-10] MEDS: SODIUM CHLORIDE 0.9 % (FLUSH) 10 ML SYRINGE 5 ML IVF (07:45)
[2024-05-10] MEDS: PANTOPRAZOLE SODIUM 40 MG INJ IVP (07:45)
[2024-05-10 08:10] LABS: Immature Reticulocyte Fraction 55.7 % (3.0-15.9); Reticulocyte Hemoglobin Equivi 17.1 pg (29.0-35.0); Reticulocyte Percent 0.6 % (0.5-2.0); Reticulocytes Absolute 0.03 # (0.03-0.08)
--- NOTE | 2024-05-10 11:21 | P.DS_ITS ---
DS: Providers Provider Date Seen: 05/10/24 Date of admission: 05/09/24 07:57 Primary care physician: Castro Fernandes MD Admitting Clinician: Robert Machado MD Attending Physician on discharge: Robert Machado MD DS: Summary Hospital Course Hospital Course: Hospitalist- H&P: HPI History of Present Illness Date Seen: 05/08/24 Chief complaint: PCP sent over-Hemog low Narrative: Kiersten Brown is a 79 year old female admitted to the hospital with several weeks or months of worsening fatigue and lightheadedness and hemoglobin in clinic today of 5.5. She reports poor exercise tolerance and reports feeling like she has 'run a marathon' with even mild routine household tasks. She has not been syncopal. She does not have chest pain with activity. She had heme-positive stool in the emergency department Patient reports she has generally been healthy but has noted worsening fatigue and lightheadedness especially over the last few weeks. She indicates this may have gone back a couple years to when she got the COVID vaccine as well. At that time she did have gastrointestinal symptoms and some wheezing for a few months and that resolved and she seemed to get better but now is getting worse again. She is not aware of any bleeding. She reports her stools are normally light brown but today in the emergency department she had a dark stool. She has not seen blood in her stool. She has no vomiting or abdominal pain. She has not any fever. 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 This diagnosis was made in the . She has not been taking any treatment for this. She had a colonoscopy done 03/17/[address] Samayoa. He found colitis in the area of the colon 10-15 cm above the rectal verge. A biopsy of that area showed focally minimally active chronic colitis. She is not taking any anticoagulation. She occasionally but quite infrequently takes an aspirin. Her only medication is a multivitamin. She does not take kkjt-wze-ofpfrbq pain medicines including NSAIDs/ibuprofen/naproxen. CT AP IMPRESSION: No acute intraabdominal process identified. (1) Possible GI bleed: Problem details: Hgb 5.5->8-7.5 2 units transfused 05/08 1 unit transfused 05/09 EGD completed Discharge hemoglobin 9.2 no evidence of further GI bleeding, melena, hematochezia etc Status: Acute (2) Heme positive stool: Problem details: will need colonoscopy as an outpatient. Status: Acute (3) Microcytic anemia: Problem details: Likely chronic Check retic count and iron studies. Status: Acute (4) Hypertension: Problem details: SBP in 140s can follow up as outpatient (5) Ulcerative proctitis: Problem details: Remote history. Unclear if this is contributing to current problems. Recommend repeat colonoscopy Status: Acute EGD 1)Reflux esophagitis with no bleeding 2) small hiatal hernia 3) no gross lesions in Stomach Outpatient PCP follow up 5 days, Recs for PCP 1) Follow up on EGD biopsy results 2) Schedule outpatient colonoscopy 3) HTN mgmt 4) Consider hematology referral for microcytic anemia; follow up pending hematology labs Time Spent with Patient Time attestation: Total time spent providing and/or coordinating discharge services: Exam Narrative: Exam Narrative: Gen: no acute distress HEENT: NCAT EOMI mmm Neck: Supple CV: RRR normal s1 s2 Lungs: CTAB Abd: Soft,nt, nd Neuro: Alert, oriented, CN grossly intact; nonfocal screening?exam Psych: appropriate affect MSK: age appropriate muscle mass Skin; Warm, dry no rash on face Const: Vital Signs, click to edit/add: Vital Signs - 24 hr 05/09/24 15:00 05/09/24 15:00 05/09/24 15:00 Temperature 98.1 F Pulse Rate 81 Pulse Rate [Apical ] 63 63 Respiratory Rate 18 18 Blood Pressure [Le ft Arm] 179/79 H Pulse Oximetry 96 Oxygen Delivery Me thod Room Air 05/09/24 19:00 05/09/24 22:46 05/09/24 23:00 Temperature 98.9 F 97.4 F L Pulse Rate 73 Pulse Rate [Apical ] 75 75 Respiratory Rate 18 16 Blood Pressure [Le ft Arm] 153/69 H 149/65 H Pulse Oximetry 95 94 Oxygen Delivery Me thod Room Air Room Air 05/10/24 03:00 05/10/24 07:41 Temperature 97.7 F 97.4 F L Pulse Rate Pulse Rate [Apical ] 73 95 Respiratory Rate 16 18 Blood Pressure [Le ft Arm] 174/81 H 146/63 H Pulse Oximetry 91 94 Oxygen Delivery Me thod Room Air Room Air DS: Data Data Completed and Pending Labs on day of discharge: Labs from last 24 hours 05/10/24 05/09/24 05/08/24 06:40 13:50 14:43 WBC 11.97 H RBC 4.63 Hgb 8.3 L 8.9 L Hct 28.4 L MCV 61 L MCH 18 L MCHC 29 L RDW Coeff of Halley 29.3 H Plt Count 254 Neut % (Auto) 70.4 Lymph % (Auto) 17.3 L [place] % (Auto) 10.1 Eos % (Auto) 1.2 Baso % (Auto) 0.7 Neut # (Auto) 8.40 H Lymph # (Auto) 2.10 [place] # (Auto) 1.20 H Eos # (Auto) 0.10 Baso # (Auto) 0.10 Abs Immat Gran (auto) 0.00 Imm/Tot Granulo (auto) 0.3 Peripher Smr Path Cons Pending Absolute Retic 0.03 Percent Retic 0.6 Immature Retic Fraction 55.7 H Retic Hgb Equivalent 17.1 L Sodium 139 Potassium 4.1 Chloride 110 Carbon Dioxide 23 Anion Gap 6 L BUN 13 Creatinine 0.7 Estimated Creat Clear 34.99 Estimated GFR 88 Glucose 112 Calcium 9.1 Ferritin 14.4 Whole Blood Lead Pending Lab Acknowledgement Test Added Crossmatch (AHG) See Detail Discharge Plan Discharge Disposition: Home, Self-Care Date of Admission: 05/09/24 07:57 Attending Provider on Discharge: Alejo Valentine Primary Care Provider: Castro Fernandes Condition: Improved Anticipated Discharge Date/Time: 05/10/24 13:00 Discharge Medications: New omeprazole 40 mg capsule,delayed release(DR/EC) 40 mg PO DAILY Qty: 30 0RF Multivitamin Women 50 Plus 8 mg iron-400 mcg-50 mcg tablet 1 tab PO DAILY Qty: 30 0RF Continued calcium-vitamin D3-vitamin K [Viactiv] 650 mg-12.5 mcg-40 mcg tablet,chewable 1 tab PO BID Discharge Orders: Discharge Order (Routine); Ordered 05/10/24 Ordered By: Alejo Valentine Patient Education: Omeprazole (By mouth), Multivitamins, Adult Formula (By mouth), Gastrointestinal Bleeding (DC), Anemia (DC) Activity Level: Activity as Tolerated Diet Detail: Resume previous home diet Follow Up Appointments: Castro Fernandes MD [Primary Care Provider] - 05/15/24 12:45 pm ([facility] for follow up. please help arrange outpatient colonoscopy and consider hematology referral for microcytic anemia and follow up pending hematology labs) Forms: [employer] Info Instructions
[2024-05-10 12:18] LABS: Hemoglobin* 9.2 gm/dL (12.0-16.0)
--- NOTE | 2024-05-10 20:18 | PC.NURSE ---
shift note: vss stable. Reviewed dc instructions and copies sent with pt at dc. Reviewed belongings and sent with pt at dc. IV dc'd intact lt AC and Rt AC.
== END 2024-05-10 13:20 | disposition home or self-care (01) | DRG 812 ==
LOC: ED 15:19 → MEDSURG 18:44
PROVIDERS: Hospitalist; Admitting Provider Family Medicine; Emergency Provider Emergency Medicine; PCP Family Medicine; Visit Provider Family Medicine
DX: D50.9 Iron deficiency anemia, unspecified (principal); K51.20 Ulcerative (chronic) proctitis without complications; R19.5 Other fecal abnormalities; I10 Essential (primary) hypertension; R53.83 Other fatigue; T50.8X5A Adverse effect of diagnostic agents, initial encounter; Y92.238 Other place in hospital as the place of occurrence of the external cause; Z87.19 Personal history of other diseases of the digestive system; K44.9 Diaphragmatic hernia without obstruction or gangrene
CPT/HCPCS: 00731; 36415; 36430; 43239; 74177; 80048; 82270; 82728; 83540; 83550; 83655; 84484; 85018; 85025; 85045; 86850; 86900; 86901; 86922; 88305; 88342; 93005; 99140; 99284; 99285; A9270; C9113; G0378; J1200; J2704; J2919; J7120; P9016; Q9967

== ENCOUNTER 2024-05-24 08:47 | Outpatient (CLI) | payer MEDICARE, SELFPAY ==
--- OUTSIDE RECORDS SUMMARY | 2024-05-24 08:50 | XMS_ITS | Clinical Summary ---
Author Organization [employer] [facility] Address [place], [place] [address] Care Team Providers Care Maori Liaison Adviser Name Role Phone Ginny Watson MD Primary Care Provider Milo infante Encounters Date Type Department Care Team Description 05/10/2024 Lab Requisition [facility] [phone] Unknown, Doctor 05/09/2024 Lab Requisition [facility] [phone] Chuck Weber MD from Last 3 Months Social History Tobacco Use Types Packs/Day Years [...] PCV) 011 COVID-19 vaccine series ( - season) 3 Influenza for age 65+ 07/28/2024 DEXA/DXA scan for age 65+ Completed 03/07/2011 Procedures Procedure Name Priority Date/Time Associated Diagnosis Comments LAB TRACKING EVENT Routine 05/10/2024 7: 57 AM CDT PERIPHERAL BLD MORPHOLOGY Routine 05/10/2024 4:00 AM CDT LAB TRACKING EVENT Routine 05/09/2024 9: 59 AM CDT PATH TISSUE EXAM Routine 05/09/2024 9:59 AM CDT SCAN-BONE DENSITOMETRY DEXA 03/07/2011 12:00 AM CDT from Last 3 Months or Most Recently Relevant to Health Maintenance Results * LAB TRACKING EVENT (05/10/2024 7:57 AM CDT) Only the most recent of2 resultswithin the time period is included. Other (Other) Client Collect / Unknown 05/10/2024 7:57 AM CDT 05/10/2024 2:51 PM CDT Doctor Unknown LAB [facility]ORATORY [address] [place] [address], * PERIPHERAL BLD MORPHOLOGY (05/10/2024 4:00 AM CDT) Case Report Special Hematology Report ? Case: [id number] ? Authorizing Provider: ??Unknown, Doctor ?Collected: ? 05/10/2024 0400 ? Ordering Location: ? [facility] ?Received: ?05/10/2024 2154 ? Pathologist: ? Nicholas Cohn, ? MD ? Specimen: ?Peripheral Blood ? 05/13/2024 6:19 PM CDT [facility] LABORAT[facility]-C ENTRAL LABORATORY Final Diagnosis PERIPHERAL BLOOD: 1. Moderate microcytic, hypochromic anemia 2. Leukocytosis reflecting mild absolute neutrophilia and monocytosis, favor reactive 3. See comment 05/13/2024 6:19 PM CDT [facility] ENTRAL LABORATORY Comment The differential diagnosis includes an iron deficiency anemia and a possible hemoglobinopathy/ thalassemia. A hemoglobin electrophoresis and/or alpha globin gene analysis and current serum iron studies, including a ferritin level, may be helpful further characterizing this process. There is no morphologic evidence of hemolysis. Clinical correlation is recommended. There are no morphologic features to suggest the etiology of the neutrophilia and monocytosis. The findings may be reactive. There are no definitive dysplastic features. However, if the neutrophilia and monocytosis persist without etiology, increase in magnitude, or additional hemogram abnormalities develop (over the next six to nine months), consideration should be given to repeating a peripheral blood morphology study. This case was also reviewed by Helen Koehler MT, MS ([facility]). 05/13/2024 6:19 PM CDT [facility] EN[facility] LABORATORY Clinical Information The patient is a 79-year-old female. Pertinent clinical information: Microcytic anemia with normal iron studies. 05/13/2024 6:19 PM CDT [facility] ENTRAL LABORATORY CBC and Differential HEMATOLOGY PARAMETERS Tested at: ??[facility] ? RESULTS ??EXPECTED VALUES WBC: ? 12.0 ? 4.5-80p6543/cumm ?ELEVATED RBC: ? 4.63 ? 4.00-5.20 mil/cumm HGB: ? 8.3 ?12-16 gm/dl ? DECREASED HCT: ? 28.4 ? 33-51% ?DECREASED MCV: ? 61.3 ? 80-100 fl ? MICROCYTIC MCH: ? 17.9 ? 26-34 pg ?DECREASED MCHC: ?29.2 ? 32-36 gm/dl ? HYPOCHROMIC RDW: ? 29.3 ? 11.5-15.5% ?ELEVATED PLT: ? 254 ?140-563f9273/uL ? Differential ?Absolute (%) ?Expected (%) ?(x10*9/L) ? (x10*9/L) Neutrophils: ?8.44 (70.5) ? 1.7-7.0 (42-72%) ?ELEVATED Lymphocytes: ?2.07 (17.3) ? 0.9-2.9 (20-44%) ?? Monocytes: ?1.21 (10.1) ?<0.9 (0-11%) ? ELEVATED Eosinophils: ?0.14 (1.2) ? <0.5 (0-2%) ? Basophils: ?0.08 (.7) ?<0.3 (<3.0%) ? Imm Grans: ?0.03 (.3) ?<0.3 (0-3%) ? (Metas, Myelos,Pros) 05/13/2024 6:19 PM CDT [facility]-C ENTRAL LABORATORY Microscopic Description The final diagnosis is based on microscopic examination of an appropriately stained blood smear. 05/13/2024 6:19 PM CDT [facility] LABORATORY- ENTRAL LABORATORY Additional Information Interpreted at [facility] - [address], [place] [address] 05/13/2024 6:19 PM CDT [facility] Blood (Peripheral Blood) 05/10/2024 4:00 AM CDT 05/10/2024 9:54 PM CDT Doctor Unknown HEMATOLOGY [facility] [address] [place] [address], * PATH TISSUE EXAM (05/09/2024 9:59 AM CDT) Case Report Pathology Report ?Case: [id number] ? Authorizing Provider: ??Chuck Weber MD ?Collected: ? 05/09/2024 0959 ? Ordering Location: ? [facility] ?Received: ?05/10/2024 1147 ? Pathologist: ? Sulaiman Theodore ? IV, MD ? Specimens: ?? A) - Duodenum Biopsy ? B) - Stomach Biopsy ? C) - Distal Esophagus Biopsy ? 4 4:38 PM CDT [facility] [employer] [facility] CENTRAL LABORATORY Final Diagnosis A) DUODENUM, BIOPSY: 1. Duodenal mucosa with mild regenerative change, favor mild peptic or NSAID injury 2. Negative for celiac disease B) STOMACH, BIOPSY: 1. Mild non-specific chronic inflammation (see comment) ?? a. Sampling: Antral and body mucosae ?? b. Distribution: Antral and body mucosae 2. Negative for atrophic gastritis 3. Negative for Helicobacter (Helicobacter immunohistochemistry negative) C) ESOPHAGUS, DISTAL, BIOPSY: 1. Inflammatory changes consistent with reflux esophagitis 2. Negative for eosinophilic esophagitis 3. Negative for columnar mucosa 4 4:38 PM CDT [facility] LABORAT[facility]- CENTRAL LABORATORY Comment B) Mild chronic inflammation in the stomach in the absence of Helicobacter often remains unexplained, but it could reflect prior or treated Helicobacter infection. The likelihood of histologically undetected Helicobacter is quite low in our opinion. 4 4:38 PM CDT [facility] Clinical Information Ms. Brown is a 79 y.o. who presents with GI bleeding of unknown origin. EGD findings include: -Duodenal erythema -Small hiatus hernia -Suspected reflux 4 4:38 PM CDT [facility] Gross Description A) Received in formalin are 4 billings mucosal fragments ranging from 2 mm to 5 mm in greatest dimension, which are entirely submitted in one cassette. It is labeled with the patient's name and designated duodenum bulb biopsies. B) Received in formalin are 6 billings mucosal fragments ranging from 3 mm to 6 mm in greatest dimension, which are entirely submitted in one cassette. It is labeled with the patient's name and designated random stomach biopsies. C) Received in formalin are 2 billings mucosal fragments ranging from 2 mm to 5 mm in greatest dimension, which are entirely submitted in one cassette. It is labeled with the patient's name and designated distal esophagus biopsies. Mai Dean 05/10/2024 2:07 PM 4 4:38 PM CDT [facility] Microscopic Description The final diagnosis is based on microscopic examination of appropriate sections of all specimens. 4 4:38 PM CDT [facility] CENTRAL LABORATORY Additional Information Interpreted at [facility] Central Laboratory - [address] [facility] [address], [place] [address] 4 4:38 PM CDT [facility] Other (Duodenum Biopsy) 05/09/2024 9:59 AM CDT 05/10/2024 11:47 AM CDT Specimen (specimen) (Stomach Biopsy) 05/09/2024 9:59 AM CDT 05/10/2024 11:47 AM CDT Specimen (specimen) (Distal Esophagus Biopsy) 05/09/2024 9:59 AM CDT 05/10/2024 11:47 AM CDT Chuck Weber MD PATHOLOGY/CYTOLOGY [facility] LAB[facility]-C[facility]TRAL LABORATORY [address] [place] [address], * SCAN-BONE DENSITOMETRY DEXA (03/07/2011 12:00 AM CDT) Anatomical Region Laterality Modality Other Narrative Procedure Note Scanner - 03/07/2011 12:00 AM CDT [facility] OTHER from Last 3 Months or Most Recently Relevant to Health Maintenance Care Teams Maori Liaison Adviser Relationship Specialty Start Date End Date Ginny Watson MD PCP - General Family Practice 07/27/12
--- NOTE | 2024-05-24 10:04 | W.ANESCHARGE ---
Anesthesia Charges Start Date/Time Anesthesia Start Date: 05/24/24 Anesthesia Start Time: 09:50 Stop Date/Time Anesthesia Stop Date: 05/24/24 Anesthesia Stop Time: 10:15 Summary Extremes of Age - Over 70 or under 1: MDA
--- NOTE | 2024-05-24 10:13 | W.ANESCHARGE ---
Anesthesia Charges Start Date/Time Anesthesia Start Date: 05/24/24 Anesthesia Start Time: 09:50 Stop Date/Time Anesthesia Stop Date: 05/24/24 Anesthesia Stop Time: 10:15
== END 2024-05-24 08:48 | disposition home or self-care (01) ==
LOC: OP CLINIC 08:48
PROVIDERS: PCP Family Medicine; Visit Provider Internal Medicine
DX: R19.5 Other fecal abnormalities (principal); K64.8 Other hemorrhoids; K57.30 Diverticulosis of large intestine without perforation or abscess without bleeding
CPT/HCPCS: 00811; 45378; 99100; J2704

== ENCOUNTER 2024-06-10 11:02 | Outpatient (CLI) | payer MEDICARE, SELFPAY ==
--- OUTSIDE RECORDS SUMMARY | 2024-06-10 11:05 | XMS_ITS | Clinical Summary ---
Author Organization [employer] [facility] & [facility] Address [place], [place] [address] Care Team Providers Care Crew Boat Operator Name Role Phone Ginny Watson MD Primary Care Provider Milo infante Encounters Date Type Department Care Team Description 05/10/2024 Lab Requisition [facility] [phone] Unknown, Doctor 05/09/2024 Lab Requisition [facility] [phone] Chuck Weber MD from Last 3 Months [...] PM CDT Doctor Unknown LAB BILL ONLY [facility] LABORATORY-CENTRAL LABORATORY [address] [place] [address], * PERIPHERAL BLD MORPHOLOGY (05/10/2024 4:00 AM CDT) Case Report Special Hematology Report ? Case: [id number] ? Authorizing Provider: ??Unknown, Doctor ?Collected: ? 05/10/2024 0400 ? Ordering Location: ? [facility] C[facility]TRAL LAB ?Received: ?05/10/2024 2154 ? Pathologist: ? Nicholas Cohn, ? MD ? Specimen: ?Peripheral Blood ? 05/13/2024 6:19 PM CDT [facility]-C ENTRAL LABORATORY Final Diagnosis PERIPHERAL BLOOD: 1. Moderate microcytic, hypochromic anemia 2. Leukocytosis reflecting mild absolute neutrophilia and monocytosis, favor reactive 3. See comment 05/13/2024 6:19 PM CDT [facility] LAB[facility]-C ENTRAL LABORATORY Comment The differential diagnosis [...] also reviewed by Helen Koehler MT, MS ([facility]). 05/13/2024 6:19 PM CDT [facility]-C ENTRAL LABORATORY Clinical Information The patient is a 79-year-old female. Pertinent clinical information: Microcytic anemia with normal iron studies. 05/13/2024 6:19 PM CDT [facility]-C ENTRAL LABORATORY CBC and Differential HEMATOLOGY PARAMETERS Tested at: ??[facility] ? RESULTS ??EXPECTED VALUES WBC: ? 12.0 ? 4.5-15t1935/cumm ?ELEVATED RBC: ? 4.63 ? 4.00-5.20 mil/cumm HGB: ? 8.3 ?12-16 gm/dl ? DECREASED HCT: ? 28.4 ? 33-51% ?DECREASED MCV: ? 61.3 ? 80-100 fl ? MICROCYTIC MCH: ? 17.9 ? 26-34 pg ?DECREASED MCHC: ?29.2 ? 32-36 gm/dl ? HYPOCHROMIC RDW: ? 29.3 ? 11.5-15.5% ?ELEVATED PLT: ? 254 ?140-680g5408/uL ? Differential ?Absolute (%) ?Expected (%) ?(x10*9/L) ? (x10*9/L) Neutrophils: ?8.44 (70.5) ? 1.7-7.0 (42-72%) ?ELEVATED Lymphocytes: ?2.07 (17.3) ? 0.9-2.9 (20-44%) ?? Monocytes: ?1.21 (10.1) ?<0.9 (0-11%) ? ELEVATED Eosinophils: ?0.14 (1.2) ? <0.5 (0-2%) ? Basophils: ?0.08 (.7) ?<0.3 (<3.0%) ? Imm Grans: ?0.03 (.3) ?<0.3 (0-3%) ? (Metas, Myelos,Pros) 05/13/2024 6:19 PM CDT [facility]-C ENTRAL LABORATORY Microscopic Description The final diagnosis is based on microscopic examination of an appropriately stained blood smear. 05/13/2024 6:19 PM CDT [facility] LABORATORY- ENTRAL LABORATORY Additional Information Interpreted at [facility] Laboratory - [address], [place] [address] 05/13/2024 6:19 PM CDT [facility] Blood (Peripheral Blood) 05/10/2024 4:00 AM CDT 05/10/2024 9:54 PM CDT Doctor Unknown HEMATOLOGY [facility] [address] [place] [address], * PATH TISSUE EXAM (05/09/2024 9:59 AM CDT) Case Report Pathology Report ?Case: [id number] ? Authorizing Provider: ??Chuck Weber MD ?Collected: ? 05/09/2024 0959 ? Ordering Location: ? [facility] LAB ?Received: ?05/10/2024 1147 ? Pathologist: ? Sulaiman Theodore ? IV, MD ? Specimens: ?? A) - Duodenum Biopsy ? B) - Stomach Biopsy ? C) - Distal Esophagus Biopsy ? 4 4:38 PM CDT [facility] [employer] [facility] CENTRAL LABORATORY Final Diagnosis A) DUODENUM, BIOPSY: [...] in our opinion. 4 4:[address] [facility] Clinical Information Ms. Brown is a 79 y.o. who presents with GI bleeding of unknown origin. EGD findings include: -Duodenal erythema -Small hiatus hernia -Suspected reflux 4 4:[address] [facility] Gross Description A) Received in formalin [...] 05/10/2024 2:07 PM 4 4:[address] [facility] Microscopic Description The final diagnosis is based on microscopic examination of appropriate sections of all specimens. 4 4:38 PM CDT [facility] CENTRAL LABORATORY Additional Information Interpreted at [facility] Central Laboratory - [address] [facility] [address], [place] [address] 4 4:[address] [facility] Other (Duodenum Biopsy) 05/09/2024 9:59 AM CDT 05/10/2024 11:47 AM CDT Specimen (specimen) (Stomach Biopsy) 05/09/2024 9:59 AM CDT 05/10/2024 11:47 AM CDT Specimen (specimen) (Distal Esophagus Biopsy) 05/09/2024 9:59 AM CDT 05/10/2024 11:47 AM CDT Chuck Weber MD PATHOLOGY/CYTOLOGY [facility] LABORATORY-CENTRAL LABORATORY [address] [place] [address], * SCAN-BONE DENSITOMETRY DEXA (03/07/2011 12:00 AM CDT) Anatomical Region Laterality Modality Other Narrative Procedure Note Scanner - 03/07/2011 12:00 AM CDT Scanner OTHER from Last 3 Months or Most Recently Relevant to Health Maintenance Care Teams Crew Boat Operator Relationship Specialty Start Date End Date Ginny Watson MD PCP - General Family Practice 07/27/12
== END 2024-06-10 11:03 | disposition home or self-care (01) ==
LOC: NFLDREF 11:03
PROVIDERS: PCP Family Medicine; Visit Provider Family Medicine
DX: D50.9 Iron deficiency anemia, unspecified (principal)
CPT/HCPCS: 82728

== ENCOUNTER 2024-08-13 13:51 | Outpatient (CLI) | payer MEDICARE, SELFPAY ==
--- OUTSIDE RECORDS SUMMARY | 2024-08-13 13:53 | XMS_ITS | Clinical Summary ---
Author Organization [employer] [facility] s & [facility] Address [place], [place] [address] Care Team Providers Care Crime Analyst Name Role Phone Ginny Watson MD Primary [...] age 50+ (1 of 2) 03/16/19 96 RSV vaccine for adults or pr egnancy (1 - 1-dose 60+ series) 2006 Pneumococcal series for age 65+ (1 of 1 - PCV) 011 COVID-19 vaccine series (2022-24 season) Influenza for age 65+ 07/28/2024 DEXA/DXA scan [...] Recently Relevant to Health Maintenance Care Teams Crime Analyst Relationship Specialty Start Date End Date Ginny Watson MD PCP - General Family Practice 07/27/12
--- NOTE | 2024-08-13 14:00 | CRLHL7_ITS ---
For Patients: As a result of the Century Cures Act, medical imaging exams and procedure reports are released immediately into your electronic medical record. You may view this report before your referring provider. If you have questions, please contact your health care provider. BILATERAL SCREENING MAMMOGRAM WITH COMPUTER-AIDED DETECTION AND TOMOSYNTHESIS TECHNIQUE: CC and MLO views were obtained. These mammographic images have been obtained using full-field digital technique. These mammographic images were interpreted with the benefit of computer-aided detection. Breast Tomosynthesis was used in this interpretation. COMPARISON FILM: 08/31/17, 04/28/15, 08/16/13. FINDINGS: There are scattered areas of fibroglandular density. IMPRESSION: There is no radiographic evidence for malignancy. ASSESSMENT: BI-RADS Category 1: Negative RECOMMENDATION: Routine screening mammogram in 1 year. A lay language report of this examination will be provided to the patient. Walter Cobos M.D. Diagnostic Radiologist [employer] [email or web address] SP/Dictated by: Walter Cobos MD @ 08/14/2024 9:45:00 AM (Electronically Signed)
== END 2024-08-13 13:52 | disposition home or self-care (01) ==
LOC: MAMMO 13:51
PROVIDERS: PCP Family Medicine; Visit Provider Family Medicine
DX: Z12.31 Encounter for screening mammogram for malignant neoplasm of breast (principal)
CPT/HCPCS: 77063; 77067

== ENCOUNTER 2025-07-14 09:45 | Outpatient (CLI) | payer MEDICARE, SELFPAY | END 2025-07-14 09:46 | disposition home or self-care (01) | LOC: NFLDREF 07-17 09:34 | PROVIDERS: PCP Family Medicine; Referring Provider Family Medicine; Visit Provider Family Medicine | DX: M85.80 Other specified disorders of bone density and structure, unspecified site (principal); I10 Essential (primary) hypertension; D50.9 Iron deficiency anemia, unspecified | CPT/HCPCS: 80048; 82306 ==

== ENCOUNTER 2025-09-09 17:08 | Outpatient (CLI) | payer MEDICARE, SELFPAY ==
--- NOTE | 2025-09-09 17:20 | CRLHL7_ITS ---
For Patients: As a result of the Century Cures Act, medical imaging exams and procedure reports are released immediately into your electronic medical record. You may view this report before your referring provider. If you have questions, please contact your health care provider. INDICATION: BILATERAL SCREENING MAMMOGRAM, ASYMPTOMATIC 80 Y/O FEMALE COMPARISON: 08/13/24, 08/31/17, 04/28/15 TECHNIQUE: Digital mammogram in CC and MLO projections including computer-aided detection (CAD) and tomosynthesis. BREAST COMPOSITION: There are scattered areas of fibroglandular density. FINDINGS: No suspicious findings. ASSESSMENT: BI-RADS 1 Negative RECOMMENDATION: Annual screening mammogram. A lay language report of this examination will be provided to the patient. Dictated by: Faye Wallace MD @ 09/10/2025 07:25:59 (Electronically Signed)
== END 2025-09-09 17:09 | disposition home or self-care (01) ==
LOC: MAMMO 17:09
PROVIDERS: PCP Family Medicine; Visit Provider Family Medicine
DX: Z12.31 Encounter for screening mammogram for malignant neoplasm of breast (principal)
CPT/HCPCS: 77063; 77067